=== PATIENT | female | born 1985 | race Caucasian/White ===

== ENCOUNTER → 2024-02-10 10:29 | Outpatient (REF) | payer OTHER, SELFPAY | LOC: RAD 10:29 | PROVIDERS: ATTENDING PHYSICIAN Nurse Practitioner Family | DX: S00.83XA Contusion of other part of head, initial encounter (principal) | CPT/HCPCS: 70160 ==

== ENCOUNTER → 2024-06-03 08:34 | Outpatient (REF) | payer BC, SELFPAY | LOC: RAD 08:34 | PROVIDERS: ATTENDING PHYSICIAN Family Medicine | DX: R10.32 Left lower quadrant pain (principal) | CPT/HCPCS: 74177; Q9967 ==